=== PATIENT | female | born 1995 | race Caucasian/White ===

== ENCOUNTER 2017-06-08 11:12 | Emergency (ER) | payer OTHER ==
[~2017-06-08] VITALS: Ht 165.1 cm; Wt 64.8 kg
[2017-06-08 11:22] VITALS: TEMP 36.6; Ht 165.1 cm; Wt 64.8 kg
[2017-06-08] MEDS ORDERED: SODIUM CHLORIDE 0.9% 1000ML 1,000 ML IV STA (12:24)
--- NOTE | 2017-06-08 12:51 | DIAGNOSTIC IMAGING REPORT ---
CHEST ONE VIEW PORTABLE HISTORY: palpitations COMPARISON: None. FINDINGS: The lungs are clear. Cardiac silhouette is normal in size. No pleural effusions. No pneumothorax. IMPRESSION: No acute process. Electronically signed by: Prasad Lopez M.D. 06/08/2017 12:49 PM Dictated Date/Time: 06/08/2017 12:42 PM
--- NOTE | 2017-06-08 13:01 | EMERGENCY ROOM VISIT NOTE ---
History Report prepared by Cosmo: Nano Nam Under the Supervision of: Dr. Margarita Gunter D.O. First contact with patient: 12:02 Chief Complaint: PALPITATIONS Stated Complaint: PALPITATIONS/TACHYCARDIA Nursing Triage Summary: patient woke up this morning had 3 cups of coffee, went to class started to feel "light headed" ekg sinus tach. patient denies any chest pains or sob. 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 She left class with a friend and they walked to their commons room. The patient sat there for a little bit but continued to feel as though her heart was racing. Friend called 911 and the patient was brought to the ED by ambulance. She states that she started to feel better once she arrived in the ED. She denies feeling like her heart was skipping or fluttering. She states that she has had this feeling before when she is nervous , but denies feeling nervous about anything today. The patient has been sleeping normally. She had 3 cups of coffee this morning, but states that this is normal for her. Pt denies headache, change in vision, fevers, chest pain, shortness of breath, nausea, vomiting, diarrhea, urinary symptoms, and pain or swelling in her legs. She denies any recent travel. She denies any personal history of thyroid problems or anemia. The patient notes that she recently started exercising regularly again after not exercising for the majority of the summer. She states that she "could be dehydrated." She denies any recent alcohol use. 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 She denies any recent travel. Review of Systems See HPI for pertinent positives & negatives. A total of 10 systems reviewed and were otherwise negative. Past Medical & Surgical Medical Problems: (1) No significant active problems Family History Thyroid disorder Social History Smoking Status: Never Smoker Smokeless Tobacco Use: No Alcohol Use: occasionally Drug Use: none Marital Status: single Housing Status: lives with roommate Occupation Status: [employer] student Current/Historical Medications No Active Prescriptions or Reported Meds Allergies Coded Allergies: No Known Allergies (Unverified , 06/08/17) Physical Exam Vital Signs Date Time Temp Pulse Resp B/P (MAP) Pulse Ox O2 Delivery O2 Flow Rate FiO2 06/08/17 14:19 90 16 131/78 99 Room Air 06/08/17 13:29 97 06/08/17 12:52 106 18 131/85 100 Room Air 06/08/17 11:22 36.6 109 18 138/88 100 Room Air 06/08/17 11:22 99 Room Air 06/08/17 11:19 110 Physical Exam GENERAL: alert, well appearing, well nourished, no distress, non-toxic EYE EXAM: normal conjunctiva, PERRL and EOM's grossly intact OROPHARYNX: no exudate, no erythema, lips, buccal mucosa, and tongue normal and mucous membranes are moist NECK: supple, no nuchal rigidity, no adenopathy, non-tender LUNGS: Clear to auscultation. Normal chest wall mechanics HEART: no murmurs, S1 normal and S2 normal ABDOMEN: abdomen soft, non-tender, normo-active bowel sounds, no masses, no rebound or guarding. BACK: Back is symmetrical on inspection and there is no deformity, no midline tenderness, no CVA tenderness. SKIN: no rashes and no bruising UPPER EXTREMITIES: upper extremities are grossly normal. LOWER EXTREMITIES: No pitting edema. NEURO EXAM: Normal sensorium, cranial nerves II-XII grossly intact, normal speech, no gross weakness of arms, no gross weakness of legs. Medical Decision & Procedures ER Provider Diagnostic Interpretation: Radiology results have been interpreted by the radiologist and reviewed by me. CHEST ONE VIEW PORTABLE HISTORY: palpitations COMPARISON: None. FINDINGS: The lungs are clear. Cardiac silhouette is normal in size. No pleural effusions. No pneumothorax. IMPRESSION: No acute process. Electronically signed by: Prasad Lopez M.D. 06/08/2017 12:49 PM Dictated Date/Time: 06/08/2017 12:42 PM Laboratory Results 06/08/17 12:49 Red Blood Count 4.95, Mean Corpuscular Volume 86.7, Mean Corpuscular Hemoglobin 31.1, Mean Corpuscular Hemoglobin Concent 35.9, Mean Platelet Volume 10.4, Neutrophils (%) (Auto) 82.3, Lymphocytes (%) (Auto) 11.3, Monocytes (%) (Auto) 5.5, Eosinophils (%) (Auto) 0.3, Basophils (%) (Auto) 0.3, Neutrophils # (Auto) 9.74, Lymphocytes # (Auto) 1.34, Monocytes # (Auto) 0.65, Eosinophils # (Auto) 0.04, Basophils # (Auto) 0.03 06/08/17 12:49 Test 06/08/17 12:49 White Blood Count 11.84 K/uL (4.8-10.8) Red Blood Count 4.95 M/uL (4.2-5.4) Hemoglobin 15.4 g/dL (12.0-16.0) Hematocrit 42.9 % (37-47) Mean Corpuscular Volume 86.7 fL (80-100) Mean Corpuscular Hemoglobin 31.1 pg (25-34) Mean Corpuscular Hemoglobin Concent 35.9 g/dl (32-36) Platelet Count 252 K/uL (130-400) Mean Platelet Volume 10.4 fL (7.4-10.4) Neutrophils (%) (Auto) 82.3 % Lymphocytes (%) (Auto) 11.3 % Monocytes (%) (Auto) 5.5 % Eosinophils (%) (Auto) 0.3 % Basophils (%) (Auto) 0.3 % Neutrophils # (Auto) 9.74 K/uL (1.4-6.5) Lymphocytes # (Auto) 1.34 K/uL (1.2-3.4) Monocytes # (Auto) 0.65 K/uL (0.11-0.59) Eosinophils # (Auto) 0.04 K/uL (0-0.5) Basophils # (Auto) 0.03 K/uL (0-0.2) RDW Standard Deviation 39.7 fL (36.4-46.3) RDW Coefficient of Variation 12.4 % (11.5-14.5) Immature Granulocyte % (Auto) 0.3 % Immature Granulocyte # (Auto) 0.04 K/uL (0.00-0.02) D-Dimer < 190 ug/L FEU (0-500) Anion Gap 10.0 mmol/L (3-11) Est Creatinine Clear Calc Drug Dose 105.4 ml/min Estimated GFR () 130.0 Estimated GFR (Non- 112.1 BUN/Creatinine Ratio 15.8 (10-20) Calcium Level 9.1 mg/dl (8.5-10.1) Magnesium Level 1.9 mg/dl (1.8-2.4) Troponin I < 0.015 ng/ml (0-0.045) Thyroid Stimulating Hormone (TSH) 1.640 uIu/ml (0.300-4.500) Human Chorionic Gonadotropin, Qual NEG (NEG) Laboratory results per my review. Medications Administered Medications (Trade) Dose Ordered Sig/Freddie Route Start Time Stop Time Status Last Admin Dose Admin Sodium Chloride 1,000 ml @ 999 mls/hr Q1H1M STAT IV 06/08/17 12:24 06/08/17 13:24 DC 06/08/17 13:00 999 MLS/HR ECG Indication: palpitations Rate (beats per minute): 106 Rhythm: sinus tachycardia Findings: T-wave inversion (3, AVF, V3), other (normal axis, normal intervals) ED Course 1205: The patient was evaluated in room C2B. A complete history and physical exam was performed. 1224: NSS 1000 ml @ 999 mls/hr IV 1350: I reassessed the patient and she is doing well. She is asymptomatic. 1428: I reassessed the patient at this time. She is feeling better and resting comfortably. I discussed the results and treatment plan with the patient. I answered all pertaining questions that she had. She expressed understanding and verbalized agreement. The patient will be discharged home. Medical Decision Differential diagnosis includes etiologies such as premature contractions, electrolyte abnormality, cardiac dysrhythmia, thyroid dysfunction, pulmonary embolism, infection, gastrointestinal, as well as others were entertained. Patient well-appearing here, no evidence for dysrhythmia on telemetry, doubt ACS , PE, occult infectious etiology, thyroid storm, which light abnormality. Patient symptoms more likely related to caffeine consumption, dehydration, anxiety. Patient well-appearing here, and bili with a steady gait, tolerated by mouth stated she felt improved. Discussed symptoms to watch and return for, follow-up, hydration, limiting caffeine intake, she verbalized understanding was agreeable with plan. Medication Reconcilliation Current Medication List: was personally reviewed by me Blood Pressure Screening Patient's blood pressure: Normal blood pressure Impression Primary Impression: Palpitations Scribe Attestation The scribe's documentation has been prepared under my direction and personally reviewed by me in its entirety. I confirm that the note above accurately reflects all work, treatment, procedures, and medical decision making performed by me. Departure Information Dispostion Home / Self-Care Prescriptions No Active Prescriptions or Reported Meds Referrals No Doctor, Assigned (PCP) Forms HOME CARE DOCUMENTATION FORM, IMPORTANT VISIT INFORMATION, WORK / SCHOOL INSTRUCTIONS Patient Instructions My [facility] Additional Instructions Discharge drink more water and stay well-hydrated. Please avoid extra caffeine consumption. Please continue to monitor for any recurrent episodes of racing heart or palpitations. If you have any recurrent or worsening symptoms, develop chest pressure pain, trouble breathing, fevers, vomiting, dizziness, or any other new concerns, please return to the emergency room.
[2017-06-08 13:07] LABS: BASO % 0.3 %; BASO ABS # 0.03 K/uL (0-0.2); COMPLETE YES; EOS % 0.3 %; HEMATOCRIT 42.9 % (37-47); IG% 0.3 %; LYMPH % 11.3 %; LYMPH ABS # 1.34 K/uL (1.2-3.4); MEAN CELL VOLUME 86.7 fL (80-100); MEAN CORPUSCULAR HEMOGLOBIN 31.1 pg (25-34); MEAN CORPUSCULAR HGB CONC 35.9 g/dl (32-36); MEAN PLATELET VOLUME 10.4 fL (7.4-10.4); MONO % 5.5 %; NEUT % 82.3 %; PLATELET COUNT 252 K/uL (130-400); RED BLOOD COUNT 4.95 M/uL (4.2-5.4); WHITE BLOOD COUNT 11.84 K/uL (4.8-10.8)
[2017-06-08 13:37] LABS: PREG INTERNAL NEGATIVE QC NEG CLEAR BACKGROUND; PREG INTERNAL POSITIVE QC POS CONTROL LINE
[2017-06-08 13:41] LABS: MAGNESIUM 1.9 mg/dl (1.8-2.4)
[2017-06-08 13:47] LABS: BUN/CREATININE RATIO 15.8 (10-20); CALCIUM 9.1 mg/dl (8.5-10.1); CREATININE 0.76 mg/dl (0.60-1.20); POTASSIUM 3.4 mmol/L (3.5-5.1)
[2017-06-08 14:19] VITALS: BP 131/78; PULSE 90; O2SAT 99
== END 2017-06-08 14:46 | disposition home or self-care (01) ==
LOC: C.EDC 11:19
DX: R00.2 Palpitations (principal); Z83.49 Family history of other endocrine, nutritional and metabolic diseases

== ENCOUNTER 2017-07-21 15:40 | Emergency (ER) | payer OTHER ==
[~2017-07-21] VITALS: Ht 162.6 cm; Wt 69.6 kg
[2017-07-21] MEDS ORDERED: SODIUM CHLORIDE 0.9% 1000ML 1,000 ML IV STA (15:49)
--- NOTE | 2017-07-21 15:50 | EMERGENCY ROOM VISIT NOTE ---
History Report prepared by Cosmo: Padma Almendarez Under the Supervision of: Dr. Aayush Zepeda D.O. First contact with patient: 15:46 Stated Complaint: CHEST DISCOMFORT History of Present Illness The patient is a 21 year old female who presents to the Emergency Room with complaints of waxing and waning chest pain beginning last night. She also states that her heart has been racing. The patient describes the pain as being tight. She reports that walking outside and talking her parents alleviates her pain. She states that her pain is exacerbated when her arms are above her head. The patient reports having nausea but denies vomiting. The patient reports that she was barely unable to eat or drink much today due to her nausea. She also reports having back pain but denies having abdominal pain. She denies getting this pain while working out. She also denies a family history of pulmonary embolisms. Per EMS, the patient did not receive aspirin or nitroglycerin. Source of History: patient Onset: last night Position: chest Quality: other (tight) Timing: waxes/wanes Modifying Factors (Relieving): other (walking outside, talking to parents ) Associated Symptoms: + nausea, + back pain, No vomiting, No abdominal pain Review of Systems See HPI for pertinent positives & negatives. A total of 10 systems reviewed and were otherwise negative. Past Medical & Surgical Medical Problems: (1) No significant active problems Family History Thyroid disorder Social History Smoking Status: Never Smoker Alcohol Use: occasionally Drug Use: none Marital Status: single Housing Status: lives with roommate Occupation Status: [employer] student Current/Historical Medications Scheduled Omeprazole (Prilosec), 20 MG PO DAILY Allergies Coded Allergies: No Known Allergies (Unverified , 07/21/17) Physical Exam Vital Signs Date Time Temp Pulse Resp B/P (MAP) Pulse Ox O2 Delivery O2 Flow Rate FiO2 07/21/17 18:01 100 18 138/82 98 Room Air 07/21/17 17:06 101 18 133/81 98 Room Air 07/21/17 15:59 100 Room Air 07/21/17 15:54 37.4 99 16 141/83 100 Room Air Physical Exam GENERAL: Patient is awake, alert, and in no acute distress. Patient is resting comfortably and showing no signs of anxiety EYES: The conjunctivae are clear. The pupils are round and reactive. EARS, NOSE, MOUTH AND THROAT: The nose is without any evidence of any deformity. Mucous membranes are moist tongue is midline NECK: The neck is nontender and supple. RESPIRATORY: Normal respiratory effort is noted there is no evidence of wheezing rhonchi or rales CARDIOVASCULAR: tachycardic rate and regular rhythm noted there no murmurs rubs or gallops normal S1 normal S2 GASTROINTESTINAL: The abdomen is soft. Bowel sounds are present in all quadrants. Abdomen is nontender MUSCULOSKELETAL/EXTREMITIES: There is no evidence of gross deformity full range of motion is noted in the hips and shoulders SKIN: There is no obvious evidence of any rash. There are no petechiae, pallor or cyanosis noted. No calf tenderness elicited. NEUROLOGIC: Patient is awake alert and oriented x3 Medical Decision & Procedures ER Provider Diagnostic Interpretation: X-ray results as stated below per interpretation by me and the radiologist. CHEST ONE VIEW PORTABLE CLINICAL HISTORY: Pain, radiating to the abdomen. COMPARISON STUDY: 06/08/2017 FINDINGS: The cardiac and mediastinal contours are normal. There is no evidence of focal pulmonary consolidation. There is no evidence of failure. No pleural effusions are visualized.[There is no free intraperitoneal air. IMPRESSION: No active disease in the chest. Electronically signed by: Fer Castano M.D. 07/21/2017 4:03 PM Dictated Date/Time: 07/21/2017 4:03 PM Laboratory Results 07/21/17 16:26 Red Blood Count 4.60, Mean Corpuscular Volume 86.5, Mean Corpuscular Hemoglobin 30.0, Mean Corpuscular Hemoglobin Concent 34.7, Mean Platelet Volume 10.1, Neutrophils (%) (Auto) 75.2, Lymphocytes (%) (Auto) 16.7, Monocytes (%) (Auto) 7.0, Eosinophils (%) (Auto) 0.3, Basophils (%) (Auto) 0.7, Neutrophils # (Auto) 5.36, Lymphocytes # (Auto) 1.19, Monocytes # (Auto) 0.50, Eosinophils # (Auto) 0.02, Basophils # (Auto) 0.05 07/21/17 16:26 Test 07/21/17 16:26 07/21/17 16:38 07/21/17 17:01 White Blood Count 7.13 K/uL (4.8-10.8) Red Blood Count 4.60 M/uL (4.2-5.4) Hemoglobin 13.8 g/dL (12.0-16.0) Hematocrit 39.8 % (37-47) Mean Corpuscular Volume 86.5 fL (80-100) Mean Corpuscular Hemoglobin 30.0 pg (25-34) Mean Corpuscular Hemoglobin Concent 34.7 g/dl (32-36) Platelet Count 268 K/uL (130-400) Mean Platelet Volume 10.1 fL (7.4-10.4) Neutrophils (%) (Auto) 75.2 % Lymphocytes (%) (Auto) 16.7 % Monocytes (%) (Auto) 7.0 % Eosinophils (%) (Auto) 0.3 % Basophils (%) (Auto) 0.7 % Neutrophils # (Auto) 5.36 K/uL (1.4-6.5) Lymphocytes # (Auto) 1.19 K/uL (1.2-3.4) Monocytes # (Auto) 0.50 K/uL (0.11-0.59) Eosinophils # (Auto) 0.02 K/uL (0-0.5) Basophils # (Auto) 0.05 K/uL (0-0.2) RDW Standard Deviation 38.8 fL (36.4-46.3) RDW Coefficient of Variation 12.3 % (11.5-14.5) Immature Granulocyte % (Auto) 0.1 % Immature Granulocyte # (Auto) 0.01 K/uL (0.00-0.02) Prothrombin Time 11.3 SECONDS (9.0-12.0) Prothromb Time International Ratio 1.1 (0.9-1.1) Activated Partial Thromboplast Time 26.8 SECONDS (21.0-31.0) Partial Thromboplastin Ratio 1.0 Anion Gap 7.0 mmol/L (3-11) Est Creatinine Clear Calc Drug Dose 129.2 ml/min Estimated GFR () 146.4 Estimated GFR (Non- 126.3 BUN/Creatinine Ratio 10.3 (10-20) Calcium Level 8.5 mg/dl (8.5-10.1) Magnesium Level 1.8 mg/dl (1.8-2.4) Total Bilirubin 0.8 mg/dl (0.2-1) Direct Bilirubin 0.2 mg/dl (0-0.2) Aspartate Amino Transf (AST/SGOT) 14 U/L (15-37) Alanine Aminotransferase (ALT/SGPT) 22 U/L (12-78) Alkaline Phosphatase 53 U/L (45-117) Total Creatine Kinase 89 U/L (26-192) Creatine Kinase MB 0.8 ng/ml (0.5-3.6) Creatine Kinase MB Ratio 0.9 (0-3.0) Troponin I < 0.015 ng/ml (0-0.045) Total Protein 7.6 gm/dl (6.4-8.2) Albumin 4.1 gm/dl (3.4-5.0) Lipase 88 U/L (73-393) Thyroid Stimulating Hormone (TSH) 1.530 uIu/ml (0.300-4.500) Human Chorionic Gonadotropin, Qual NEG (NEG) Bedside D-Dimer 98 ng/mlFEU (0-450) Urine Color YELLOW Urine Appearance CLEAR (CLEAR) Urine pH 7.5 (4.5-7.5) Urine Specific [place] 1.005 (1.000-1.030) Urine Protein NEG (NEG) Urine Glucose (UA) NEG (NEG) Urine Ketones NEG (NEG) Urine Occult Blood 3+ (NEG) Urine Nitrite NEG (NEG) Urine Bilirubin NEG (NEG) Urine Urobilinogen NEG (NEG) Urine Leukocyte Esterase NEG (NEG) Urine WBC (Auto) /hpf (0-5) Urine RBC (Auto) /hpf (0-4) Urine Hyaline Casts (Auto) /lpf (0-5) Urine Epithelial Cells (Auto) /lpf (0-5) Urine Bacteria (Auto) (NEG) Urine RBC >30 /hpf (0-4) Urine WBC 1-5 /hpf (0-5) Urine Epithelial Cells 5-10 /lpf (0-5) Urine Bacteria 1+ (NEG) Urine Yeast (Auto) (NONE PRSENT) Laboratory results per my review. Medications Administered Medications (Trade) Dose Ordered Sig/Freddie Route Start Time Stop Time Status Last Admin Dose Admin Sodium Chloride 1,000 ml @ 999 mls/hr Q1H1M STAT IV 07/21/17 15:49 07/21/17 16:49 DC 07/21/17 16:19 999 MLS/HR Al Hydroxide/Mg Hydroxide (Maalox Susp) 30 ml NOW STAT PO 10/10/17 17:50 07/21/17 17:51 DC 07/21/17 18:01 30 ML Pantoprazole Sodium (Protonix Tab) 40 mg NOW STAT PO 07/21/17 17:50 07/21/17 17:51 DC 07/21/17 18:01 40 MG ECG Indication: chest pain Rate (beats per minute): 110 Rhythm: sinus tachycardia Findings: T-wave inversion (Inferior and lateral), no ectopy Change: no significant change (from June 09, 2017) ED Course 1545: The patient was evaluated in room A12. A complete history and physical examination were performed. 1549: Ordered Sodium Chloride 1,000 ml @ 999 mls/hr IV. 1750: Ordered Protonix Tab 40 mg PO, Maalox Susp 30 ml PO. 1800: Upon reevaluation, the patient is resting. I discussed the results and treatment plan with her. She verbalized agreement of the treatment plan. She was discharged home. Medical Decision Differential diagnosis: Etiologies such as infections, reactive airway disease, pneumonia, pneumothorax , COPD, CHF, cardiac ischemia, pulmonary embolism, musculoskeletal, gastrointestinal, as well as others were entertained. Nursing notes reviewed. The patient is a 21-year-old female who presented to the emergency department for an evaluation of left-sided chest pain. The chest pain appeared to be mildly reproducible but also associated with breathing and tachycardia. The patient complained of mild shortness of breath. Her EKG did not show any acute change from previous and her cardiac biomarkers were negative. The patient's d- dimer was negative. I discussed the patient's laboratory and radiographic studies with her. She was treated with IV fluids in the emergency department. She was encouraged to rest and avoid any strenuous activity. She was also encouraged to call her primary care physician to schedule a follow-up appointment as soon as possible. Otherwise she was encouraged to return to emergency department immediately if symptoms change worsen or the need arises. Medication Reconcilliation Current Medication List: was personally reviewed by me Blood Pressure Screening Patient's blood pressure: Elevated blood pressure Blood pressure disposition: Elevated BP felt to be situational Impression Primary Impression: Left sided chest pain Scribe Attestation The scribe's documentation has been prepared under my direction and personally reviewed by me in its entirety. I confirm that the note above accurately reflects all work, treatment, procedures, and medical decision making performed by me. Departure Information Dispostion Home / Self-Care Prescriptions Omeprazole (Prilosec) 20 Mg Capcr 20 MG PO DAILY, #30 CAP Prov: Aayush Zepeda, DO 07/21/17 Referrals No Doctor, Assigned (PCP) Forms HOME CARE DOCUMENTATION FORM, IMPORTANT VISIT INFORMATION Patient Instructions ED Chest Pain Atypical Unkn Cause, My [facility] Additional Instructions Call [facility] in the morning to schedule a follow-up appointment. Continue all medications as prescribed. Rest and avoid any strenuous activity. Return to the emergency department if symptoms change worsen or if the need arises. Discussed the possibility that you may require further studies such as an echocardiogram or a Holter monitor to further evaluate the cause your symptoms.
[2017-07-21 15:54] VITALS: TEMP 37.4; Ht 162.6 cm; Wt 69.6 kg
--- NOTE | 2017-07-21 16:04 | DIAGNOSTIC IMAGING REPORT ---
CHEST ONE VIEW PORTABLE CLINICAL HISTORY: Pain, radiating to the abdomen. COMPARISON STUDY: 06/08/2017 FINDINGS: The cardiac and mediastinal contours are normal. There is no evidence of focal pulmonary consolidation. There is no evidence of failure. No pleural effusions are visualized.[There is no free intraperitoneal air. IMPRESSION: No active disease in the chest. Electronically signed by: Fer Castano M.D. 07/21/2017 4:03 PM Dictated Date/Time: 07/21/2017 4:03 PM
[2017-07-21 16:36] LABS: BASO % 0.7 %; BASO ABS # 0.05 K/uL (0-0.2); COMPLETE YES; EOS % 0.3 %; HEMATOCRIT 39.8 % (37-47); IG% 0.1 %; LYMPH % 16.7 %; LYMPH ABS # 1.19 K/uL (1.2-3.4); MEAN CELL VOLUME 86.5 fL (80-100); MEAN CORPUSCULAR HGB CONC 34.7 g/dl (32-36); MEAN PLATELET VOLUME 10.1 fL (7.4-10.4); NEUT % 75.2 %; PLATELET COUNT 268 K/uL (130-400); WHITE BLOOD COUNT 7.13 K/uL (4.8-10.8)
[2017-07-21 16:51] LABS: INR 1.1 (0.9-1.1); PROTHROMBIN TIME (PATIENT) 11.3 SECONDS (9.0-12.0)
[2017-07-21 17:07] LABS: ALT/SGPT 22 U/L (12-78); AST/SGOT 14 U/L (15-37); BLOOD UREA NITROGEN 7 mg/dl (7-18); BUN/CREATININE RATIO 10.3 (10-20); CALCIUM 8.5 mg/dl (8.5-10.1); CARBON DIOXIDE 25 mmol/L (21-32); CHLORIDE 107 mmol/L (98-107); CREATININE 0.66 mg/dl (0.60-1.20); GLUCOSE 91 mg/dl (70-99); MAGNESIUM 1.8 mg/dl (1.8-2.4); POTASSIUM 3.4 mmol/L (3.5-5.1); SODIUM 139 mmol/L (136-145)
[2017-07-21 17:16] LABS: URINE APPEARANCE CLEAR (CLEAR); URINE BILIRUBIN NEG (NEG); URINE COLOR YELLOW; URINE NITRITE NEG (NEG); URINE PH 7.5 (4.5-7.5); URINE SPECIFIC GRAVITY 1.005 (1.000-1.030); UROBILINOGEN NEG (NEG)
[2017-07-21 17:18] LABS: MANUAL MICROSCOPIC REQUIRED? YES; REVIEW REQ? NO
[2017-07-21 17:19] LABS: ALKALINE PHOSPHATASE 53 U/L (45-117); CKMB/CK RATIO 0.9 (0-3.0)
[2017-07-21 17:28] LABS: URINE BACTERIA 1+ (NEG); URINE RBC >30 /hpf (0-4)
[2017-07-21] MEDS ORDERED: ALUMINUM/MAGNESIUM SUSP 30 ML UDC PO STA (17:50)
[2017-07-21] MEDS ORDERED: PANTOprazole SOD 40 MG TAB PO STA (17:50)
[2017-07-21] MEDS ORDERED: OMEP20CA59 PO (17:51)
[2017-07-21 18:01] VITALS: BP 138/82; PULSE 100; O2SAT 98
[2017-07-21 18:08] LABS: PREG INTERNAL NEGATIVE QC NEG CLEAR BACKGROUND; PREG INTERNAL POSITIVE QC POS CONTROL LINE
== END 2017-07-21 18:11 | disposition home or self-care (01) ==
LOC: EDBD 15:40 → C.EDA 15:41
DX: R07.9 Chest pain, unspecified (principal)